=== PATIENT | female | born 1990 | race Caucasian/White ===

== ENCOUNTER → 2018-01-17 10:04 | Outpatient (CLI) | payer BC, SELFPAY ==
--- NOTE | 2018-01-17 10:12 | VDLE_ITS ---
Reason For Study: LEG SWELLING RIGHT LEFT GSV is normal. GSV is normal. CFV is compressible, spontaneous, phasic, CFV is compressible, spontaneous, phasic, competent and demonstrates normal competent, and demonstrates normal augmentation. augmentation. FV is compressible, spontaneous, phasic, FV is compressible, spontaneous, phasic, competent and demonstrates normal competent and demonstrates normal augmentation. augmentation. POP V is compressible, spontaneous, phasic, POP V is compressible, spontaneous, phasic, competent and demonstrates normal competent and demonstrates normal augmentation. augmentation. T/P Trunk is compressible. T/P Trunk is compressible. PTV is compressible. PTV is compressible. RT PerV is compressible. LT PerV is compressible. SFJ is competent SFJ is competent GSV and SSV are diminutive and unable to be GSV and SSV are diminutive and unable to be assessed. assessed. Procedure Exam performed in department. A preliminary report was called and/or faxed to Dr. Leon. Interpretation Summary Deep veins of the lower extremities are bilaterally patent and compressible segmentally. There is no evidence of deep vein thrombosis on either side. Valvular competence appears intact within the proximal deep venous systems bilaterally. Sapheno-femoral junctions are bilaterally competent . The great saphenous vein and small saphenous vein are diminutive bilaterally, and could not be fully assessed. Ordering Physician: Kevin Leon Performed By: Elizabeth Suarez RVT
== END ==
DX: R60.0 Localized edema (principal)
CPT/HCPCS: 93970

== ENCOUNTER 2018-03-25 08:26 | Outpatient (RCR) | payer BC, SELFPAY ==
[2018-03-25 08:58] VITALS: BP 120/76; PULSE 60; RESP 18; TEMP 35.6; BMI 56.9
--- NOTE | 2018-03-25 10:03 | PCM.WC.HP ---
(1) Bilateral lower extremity edema Status: Acute Current Visit: Yes Code(s): R60.0 - Localized edema (2) Pain in both knees Status: Acute Current Visit: Yes Code(s): M25.561 - Pain in right knee; M25.562 - Pain in left knee (3) Peripheral vascular occlusive disease Status: Acute Current Visit: Yes Code(s): I73.9 - Peripheral vascular disease, unspecified History of Present Illness Date of Service: 03/25/18 Chief Complaint: Bilateral lower leg swelling History of Wound: 27-year-old white female, seen by her primary physician for lower extremity edema. Patient has no comorbidities noted. Patient noticed since November increasing edema on the lower legs with pain in her knees and lower extremities especially in the calf. Patient had a bilateral ultrasound for DVTs and they were negative for DVTs but they did find on her GSV's bilaterally are diminutive and unable to assess. Patient is a non-smoker has 2 small children had normal pregnancies had some swelling with the first but not with the second. Is on her feet 10-12 hours a day working. Patient has been wearing compression stockings 20-30 mmHg and actually had pictures to demonstrate the severe swelling that she has had with 2+ pitting edema. Will be referred to Dr. Diana for ablation and treatment. Patient's questions were answered and patient was cooperative there is no wounds on her legs there is good coloring skin was warm to touch cap refill is less than 2 seconds. Past Medical History Past Medical History: Anxiety and lower leg edema Surgical History: appendectomy, hysterectomy Allergies/Adverse Reactions: Allergies Penicillins Allergy (Verified 03/25/18 09:11) Hives sulfamethoxazole [From Bactrim] Allergy (Verified 03/25/18 09:11) Hives trimethoprim [From Bactrim] Allergy (Verified 03/25/18 09:11) Hives Home Medications: Ambulatory Orders Medication Instructions Recorded Clonazepam [Clonazepam Tab.Rapdis] 0.25 mg PO QHS 08/21/16 Paroxetine HCl [Paxil] 20 mg PO QHS 03/30/17 Estradiol 2 mg PO DAILY #100 tablet 04/05/17 Mirtazapine [Remeron] 15 mg PO 03/25/18 Lives: Spouse/ Significant Other, With Family Smoking Status: Never smoker Alcohol: Rare Drugs: None Review of Systems Constitutional: Denies: Chills, Fever Eyes: Denies: Blurred vision, Drainage, Pain HEENT: Denies: Difficulty Hearing, Difficulty Swallowing, Sore Throat, Visual Changes Cardiovascular: Reports: Edema - Lower extremities bilateral. Denies: Chest Pain, Palpitations, Syncope Respiratory: Denies: Cough, Shortness of Breath Gastrointestinal: Denies: Abdominal Pain, Nausea, Vomiting Genitourinary: Denies: Dysuria, Frequency Musculoskeletal: Denies: Joint Pain, Muscle pain Skin: Denies: Jaundice, Rash Neurological: Denies: Balance problems, Change in Speech, Difficulty swallowing, Focal weakness Psychiatric: Denies: Anxiety, Depression Endocrine: Denies: Change in Body Habitus Hematologic/ Lymphatic: Denies: Adenopathy - Physical Exam Vital Signs Temp Pulse Resp BP 96.1 F L 60 18 120/76 03/25/18 08:58 03/25/18 08:58 03/25/18 08:58 03/25/18 08:58 General: Oriented x3, Cooperative, Well developed HEENT: Atraumatic, PERRLA Oral: Moist Mucosa Neck: Supple, No JVD Lungs: Clear to auscultation, Normal air movement Cardiovascular: Regular rate, Regular Rhythm Abdomen: Bowel Sounds Present, Soft, Non Tender, No Hepato-splenomegaly Extremities: No clubbing, Edema, Peripheral Pulses Normal Skin: No rashes Wound Measurements and Assessment WC - Nurse 1 - General Ulcer Measurement Start: 03/25/18 08:28 Freq: Status: Active Protocol: Activity Type Activity Date Activity User E-Sign Co-Sign Detail Recorded Client Recorded Date Recorded By Document 03/25/18 08:58 [id number] 03/25/18 09:08 DL 03/25/18 08:58 Wound Center Nurse 1 [Ulcer Assessment] Edema -Photo Taken Yes -Texture (Hope-wound Skin Appearance) No Abnormality -Moisture (Hope-wound Skin Appearance No Abnormality ) -Color (Hope-wound Skin Appearance) No Abnormality -Temperature (Hope-wound Skin No Abnormality Appearance) (Pt Warm) [Edema Assessment] -Right Calf (cm) 38.5 -Right Ankle (cm) 23.2 -Left Calf (cm) 37.8 -Left Ankle (cm) 23 WC - Nurse 2 - General Ulcer CM Notes Start: 03/25/18 08:28 Freq: Status: Active Protocol: Activity Type Activity Date Activity User E-Sign Co-Sign Detail Recorded Client Recorded Date Recorded By Document 03/25/18 09:33 [id number] 03/25/18 09:34 03/25/18 09:33 Pain Scale: 0-10 Numeric [Pain] -Is Patient Pain Free? Yes Musculoskeletal: No Tenderness to Palpation of Joints or Extremities Lymphatic: No Cervical, Supraclavicular, or Inguinal Adenopathy Neurological: Cranial nerves II-XII grossly intact, Neuro grossly intact Psych/Mental Status: Normal Affect, Appropriate, Alert and oriented to time, place, person, mood and affect Debridement Note Post-Debridement Measurements/Treatment WC - Nurse 2 - General Ulcer CM Notes Start: 03/25/18 08:28 Freq: Status: Active Protocol: Activity Type Activity Date Activity User E-Sign Co-Sign Detail Recorded Client Recorded Date Recorded By Document 03/25/18 09:33 [id number] 03/25/18 09:34 03/25/18 09:33 Pain Scale: 0-10 Numeric Is Patient Pain Free? Yes No debridement was completed today Assessment/Plan Active Problems Bilateral lower extremity edema (Acute) Pain in both knees (Acute) Peripheral vascular occlusive disease (Acute) Assessment: Bilateral lower leg edema. Peripheral vascular occlusive disease. bilateral lower leg pain Plan: Continue wearing compression stockings 20-30 mmHg with Jake wraps over top. Referred to Dr. Diana's office and will defer care to him. As needed
--- NOTE | 2018-03-25 10:23 | HP.PCM_ITS ---
(1) Bilateral lower extremity edema Status: Acute Current Visit: Yes Code(s): R60.0 - Localized edema (2) Pain in both knees Status: Acute Current Visit: Yes Code(s): M25.561 - Pain in right knee; M25.562 - Pain in left knee (3) Peripheral vascular occlusive disease Status: Acute Current Visit: Yes Code(s): I73.9 - Peripheral vascular disease, unspecified History of Present Illness Date of Service: 03/25/18 Chief Complaint: Bilateral lower leg swelling History of Wound: 27-year-old white female, seen by her primary physician for lower extremity edema. Patient has no comorbidities noted. Patient noticed since November increasing edema on the lower legs with pain in her knees and lower extremities especially in the calf. Patient had a bilateral ultrasound for DVTs and they were negative for DVTs but they did find on her GSV's bilaterally are diminutive and unable to assess. Patient is a non-smoker has 2 small children had normal pregnancies had some swelling with the first but not with the second. Is on her feet 10-12 hours a day working. Patient has been wearing compression stockings 20-30 mmHg and actually had pictures to demonstrate the severe swelling that she has had with 2+ pitting edema. Will be referred to Dr. Diana for ablation and treatment. Patient's questions were answered and patient was cooperative there is no wounds on her legs there is good coloring skin was warm to touch cap refill is less than 2 seconds. Past Medical History Past Medical History: Anxiety and lower leg edema Surgical History: appendectomy, hysterectomy Allergies/Adverse Reactions: Allergies Penicillins Allergy (Verified 03/25/18 09:11) Hives sulfamethoxazole [From Bactrim] Allergy (Verified 03/25/18 09:11) Hives trimethoprim [From Bactrim] Allergy (Verified 03/25/18 09:11) Hives Home Medications: Ambulatory Orders Medication Instructions Recorded Clonazepam [Clonazepam Tab.Rapdis] 0.25 mg PO QHS 08/21/16 Paroxetine HCl [Paxil] 20 mg PO QHS 03/30/17 Estradiol 2 mg PO DAILY #100 tablet 04/05/17 Mirtazapine [Remeron] 15 mg PO 03/25/18 Lives: Spouse/ Significant Other, With Family Smoking Status: Never smoker Alcohol: Rare Drugs: None Review of Systems Constitutional: Denies: Chills, Fever Eyes: Denies: Blurred vision, Drainage, Pain HEENT: Denies: Difficulty Hearing, Difficulty Swallowing, Sore Throat, Visual Changes Cardiovascular: Reports: Edema - Lower extremities bilateral. Denies: Chest Pain, Palpitations, Syncope Respiratory: Denies: Cough, Shortness of Breath Gastrointestinal: Denies: Abdominal Pain, Nausea, Vomiting Genitourinary: Denies: Dysuria, Frequency Musculoskeletal: Denies: Joint Pain, Muscle pain Skin: Denies: Jaundice, Rash Neurological: Denies: Balance problems, Change in Speech, Difficulty swallowing , Focal weakness Psychiatric: Denies: Anxiety, Depression Endocrine: Denies: Change in Body Habitus Hematologic/ Lymphatic: Denies: Adenopathy - Physical Exam Vital Signs Temp Pulse Resp BP 96.1 F L 60 18 120/76 03/25/18 08:58 03/25/18 08:58 03/25/18 08:58 03/25/18 08:58 General: Oriented x3, Cooperative, Well developed HEENT: Atraumatic, PERRLA Oral: Moist Mucosa Neck: Supple, No JVD Lungs: Clear to auscultation, Normal air movement Cardiovascular: Regular rate, Regular Rhythm Abdomen: Bowel Sounds Present, Soft, Non Tender, No Hepato-splenomegaly Extremities: No clubbing, Edema, Peripheral Pulses Normal Skin: No rashes Wound Measurements and Assessment WC - Nurse 1 - General Ulcer Measurement Start: 03/25/18 08:28 Freq: Status: Active Protocol: Activity Type Activity Date Activity User E-Sign Co-Sign Detail Recorded Client Recorded Date Recorded By Document 03/25/18 08:58 [id number] 03/25/18 09:08 DL 03/25/18 08:58 Wound Center Nurse 1 [Ulcer Assessment] Edema -Photo Taken Yes -Texture (Hope-wound Skin Appearance) No Abnormality -Moisture (Hope-wound Skin Appearance No Abnormality ) -Color (Hope-wound Skin Appearance) No Abnormality -Temperature (Hope-wound Skin No Abnormality Appearance) (Pt Warm) [Edema Assessment] -Right Calf (cm) 38.5 -Right Ankle (cm) 23.2 -Left Calf (cm) 37.8 -Left Ankle (cm) 23 WC - Nurse 2 - General Ulcer CM Notes Start: 03/25/18 08:28 Freq: Status: Active Protocol: Activity Type Activity Date Activity User E-Sign Co-Sign Detail Recorded Client Recorded Date Recorded By Document 03/25/18 09:33 [id number] [id number] 03/25/18 09:34 03/25/18 09:33 Pain Scale: 0-10 Numeric [Pain] -Is Patient Pain Free? Yes Musculoskeletal: No Tenderness to Palpation of Joints or Extremities Lymphatic: No Cervical, Supraclavicular, or Inguinal Adenopathy Neurological: Cranial nerves II-XII grossly intact, Neuro grossly intact Psych/Mental Status: Normal Affect, Appropriate, Alert and oriented to time, place, person, mood and affect Debridement Note Post-Debridement Measurements/Treatment WC - Nurse 2 - General Ulcer CM Notes Start: 03/25/18 08:28 Freq: Status: Active Protocol: Activity Type Activity Date Activity User E-Sign Co-Sign Detail Recorded Client Recorded Date Recorded By Document 03/25/18 09:33 [id number] [id number] 03/25/18 09:34 03/25/18 09:33 Pain Scale: 0-10 Numeric Is Patient Pain Free? Yes No debridement was completed today Assessment/Plan Active Problems Bilateral lower extremity edema (Acute) Pain in both knees (Acute) Peripheral vascular occlusive disease (Acute) Assessment: Bilateral lower leg edema. Peripheral vascular occlusive disease. bilateral lower leg pain Plan: Continue wearing compression stockings 20-30 mmHg with Jake wraps over top. Referred to Dr. Diana's office and will defer care to him. As needed
== END 2018-04-23 23:59 ==
LOC: WC 08:26
PROVIDERS: Visit Provider Nurse Practitioner
DX: I73.9 Peripheral vascular disease, unspecified (principal); M25.561 Pain in right knee; M25.562 Pain in left knee; R60.0 Localized edema; M79.89 Other specified soft tissue disorders; F41.9 Anxiety disorder, unspecified; Z79.899 Other long term (current) drug therapy
CPT/HCPCS: 99213; G0463

== ENCOUNTER → 2018-08-15 16:08 | Outpatient (CLI) | payer BC, SELFPAY | PROVIDERS: Visit Provider Obstetrics & Gynecology | DX: N39.0 Urinary tract infection, site not specified (principal) | CPT/HCPCS: 87086 ==

== ENCOUNTER → 2020-01-22 12:10 | Outpatient (CLI) | payer BC, SELFPAY ==
[2019-11-13 11:52] VITALS: BMI 27.1
--- NOTE | 2020-01-22 12:12 | ECHOD_ITS ---
Reason For Study: Chest Pain Procedure This was a 2D Doppler, Color Flow transthoracic echocardiogram. The exam was of adequate technical quality. Exam performed in department. Left Ventricle Normal LV size. Left ventricular systolic function is normal. The estimated ejection fraction is 65 %. No evidence for diastolic dysfunction. No regional wall motion abnormalities noted. Right Ventricle Normal RV size. Normal systolic function. Atria Normal left atrium. Normal right atrium. No doppler evidence for ASD. Mitral Valve There is no mitral annular calcification. Normal mitral valve. Trivial mitral valve insufficiency. Tricuspid Valve Normal tricuspid valve. Trivial tricuspid valve insufficiency. Right ventricular systolic pressure estimated to be 28 mmHg. Aortic Valve Trisinus/trileaflet aortic valve. Normal aortic valve. Pulmonic Valve The pulmonic valve is not well visualized. Trivial pulmonic valve insufficiency. Great Vessels Normal sized aortic root. Pericardium/Pleural No pericardial effusion. Medication Performed a rapid injection of agitated mix of 9 cc saline and 1cc air to assess for atrial septal defect. MMode/2D Measurements & Calculations LVIDd: 4.4 cm IVSd: 0.93 cm Ao root diam: 2.5 cm LVIDs: 2.9 cm LVPWd: 0.84 cm RVDd: 3.0 cm FS: 34.5 % LAV(MOD-bp): 33.8 ml LVAd ap4: 26.0 cm2 SV(MOD-sp4): 46.2 ml LAV(MOD-bp) Indexed: 18.0 ml/m2 EDV(MOD-sp4): 69.8 ml LAV(MOD-sp2): 24.0 ml EDV(sp4-el): 70.1 ml LAV(MOD-sp4): 40.9 ml LVAs ap4: 13.5 cm2 ESV(MOD-sp4): 23.6 ml ESV(sp4-el): 23.0 ml EF(MOD-sp4): 66.2 % EF(sp4-el): 67.2 % SV(sp4-el): 47.1 ml LA A4 area: 16.1 cm2 LA dimension(2D): 2.9 cm RA A4 area: 10.2 cm2 Doppler Measurements & Calculations MV E max vinicius: 105.7 cm/sec Lat Peak E' Vinicius: 13.7 cm/sec Med Peak E' Vinicius: 9.7 cm/sec MV A max vinicius: 52.8 cm/sec E/E' lat: 7.7 E/E' med: 10.9 MV E/A: 2.0 Ao V2 max: 130.7 cm/sec LV V1 max: 96.6 cm/sec PA V2 max: 85.7 cm/sec Ao max P.8 mmHg LV V1 max P.7 mmHg Ao V2 mean: 91.2 cm/sec Ao mean P.7 mmHg Ao V2 VTI: 32.9 cm PI end-d vinicius: 102.1 cm/sec TR max vinicius: 247.9 cm/sec TR max P.6 mmHg Interpretation Summary Left ventricular systolic function is normal. The estimated ejection fraction is 65 %. Trivial mitral valve insufficiency. Trivial tricuspid valve insufficiency. Trivial pulmonic valve insufficiency. Right ventricular systolic pressure estimated to be 28 mmHg. No evidence for diastolic dysfunction. Ordering Physician: Hugh Valle Referring Physician: Kevin Leon Performed By: Jennifer Valle, MARTHA, RVT
== END ==
PROVIDERS: PCP Family Medicine; Referring Provider Nurse Practitioner Family; Visit Provider Nurse Practitioner Family
DX: R07.9 Chest pain, unspecified (principal); I47.1 Supraventricular tachycardia
CPT/HCPCS: 93306; A4216

== ENCOUNTER → 2020-06-20 16:23 | Outpatient (CLI) | payer BC, SELFPAY ==
[2019-11-13 11:52] VITALS: BMI 27.1
[2020-06-24 20:07] LABS: Chlamydia By Nucleic Acid AMP Negative (Negative)
[2020-06-25 04:42] LABS: Gonococcus By Nucleic Acid AMP Negative (Negative)
== END ==
PROVIDERS: PCP Family Medicine; Visit Provider Obstetrics & Gynecology
DX: Z11.3 Encounter for screening for infections with a predominantly sexual mode of transmission (principal)
CPT/HCPCS: 87086; 87088; 87491; 87591

== ENCOUNTER 2021-08-01 12:23 | Emergency (ER) | payer BC, SELFPAY ==
[2021-08-01 12:24] VITALS: BP 151/103; PULSE 88; RESP 18; TEMP 36.4; O2SAT 95; BMI 31.0
[2021-08-01 12:25] VITALS: BP 151/103; PULSE 88; RESP 18; TEMP 36.4; O2SAT 95
--- NOTE | 2021-08-01 12:59 | EDS_ITS ---
HPI History of Present Illness Chief Complaint: General Illness Informant: patient Narrative Narrative: Patient presents with about 6 days of symptoms. She has had some myalgias and subjective fevers. She has not taken her temperature. She has never had any nasal congestion sore throat cough or pulmonary symptoms. She has had some nausea. She has vomited twice. Some slightly soft bowel movements at time but no blood. When specifically asked she has had some cloudy urine but no dysuria or urgency. No flank or back pain. She feared she likely had a viral infection but it is just not getting a lot better. She was checked for Covid and found to be negative both yesterday and on Wednesday. Nothing specifically makes her symptoms better or worse. PFSH PFSH Medical History no medical history Home Medications estradiol 2 mg tablet 1 mg PO DAILY tab 11/13/19 [History Last Taken Unknown] paroxetine HCl 20 mg tablet 60 mg PO QHS tab 11/13/19 [History Last Taken Unknown] trazodone 50 mg tablet 50 mg PO BID 11/13/19 [History Last Taken Unknown] valacyclovir 500 mg tablet 500 mg PO DAILY 11/13/19 [History Last Taken Unknown] ondansetron 4 mg PO Q8H PRN #10 tab 08/01/21 [Rx Last Taken Unknown] promethazine 25 mg PO TID PRN #10 tab 08/01/21 [Rx Last Taken Unknown] Allergy/AdvReac Type Severity Reaction Status Date / Time Penicillins Allergy Hives Verified 08/01/21 12:26 sulfamethoxazole Allergy Hives Verified 08/01/21 12:26 [From Bactrim] trimethoprim [From Bactrim] Allergy Hives Verified 08/01/21 12:26 Family History Mother Hypertension Hyperlipemia Father Hypertension Hyperlipemia Heart disease Sister Hypertension Social History Smoking Status: Never smoker ROS ROS ED Constitutional Constitutional ED: Reports chills, fever(s) and subjective; Denies weight loss Eyes Eyes: Denies blurry vision or change in vision ENT ENT ED: Denies ear pain, rhinorrhea or sore throat Cardiovascular Cardiovascular: Denies chest pain, orthopnea, palpitations or paroxysmal nocturnal dyspnea Respiratory/Chest Respiratory/Chest: Denies cough, dyspnea, dyspnea on exertion, orthopnea, paroxysmal nocturnal dyspnea or sputum Gastrointestinal Gastrointestinal: Reports diarrhea, nausea and vomiting; Denies abdominal pain Genitourinary Genitourinary ED: Reports other Details: Mild cloudy urine as in history of present illness. ; Denies dysuria, hematuria or urinary frequency Musculoskeletal Musculoskeletal: Reports myalgias; Denies back pain or neck pain Integumentary Denies rash Neurologic Neurologic: Denies headache(s) Endocrine Endocrinology: Denies polyuria Allergic/Immunologic Allergic/Immunologic ED: Denies mouth swelling or urticaria EXAM Physical Exam Const Vital Signs: 08/01/21 12:24 08/01/21 12:25 08/01/21 12:31 Temperature 97.6 F L 97.6 F L Temperature Source Temporal Temporal Pulse Rate 88 88 Respiratory Rate 18 18 Respiratory Effort Normal Non-Labored Blood Pressure 151/103 H 151/103 H Blood Pressure Mean 119 119 Pulse Ox 95 95 Oxygen Delivery Method Room Air Room Air 08/01/21 14:50 Temperature Temperature Source Pulse Rate 82 Respiratory Rate 17 Respiratory Effort Blood Pressure 104/73 Blood Pressure Mean 83 Pulse Ox 100 Oxygen Delivery Method Room Air Positive well nourished and well developed General Appearance ED: well developed and NAD HEENT Reports dry mucous membranes Negative for trauma or tenderness Mouth ED: Yes dry mucous membranes Mouth: dry mucous membranes Eyes General Eye ED: Negative for pale conjunctiva or scleral icterus Neck no JVD Chest Wall inspection of chest normal Resp normal respiratory effort and clear to auscultation bilaterally Effort and Inspection: Negative for pain with movement Auscultation: Negative for rales, rhonchi or wheezes Cardio regular rate and regular rhythm GI normal to inspection, nondistended, normoactive bowel sounds, non-tender and non-distended Back/Spine no CVA tenderness Extremity normal to inspection General Extremety ED: Negative for edema or tenderness General Extremity: Negative for edema Neuro Sensorium / Orientation: alert Psych mental status grossly normal Skin no rashes or lesions noted and no wounds MDM MDM MDM Narrative Medical decision making narrative: Blood work including CBC electrolytes are normal. Urinalysis is pending. I rechecked the patient. She states she did call once and had a little bit of pain in her chest but is gone now. An EKG was done per protocol. She is not having pain now. She states she still does have some nausea. We will write her for some Phenergan while here. We are awaiting the urinalysis. Patient is doing a little better with Phenergan. Her urinalysis shows no acute process. She still not coughing. Her saturations are 100%. She has no pulmonary symptoms. Her abdomen is completely benign on repeat exam. Lab Data Attestation: I reviewed the patient's lab results. Labs: Laboratory Results - last 24 hr 08/01/21 08/01/21 08/01/21 13:15 13:15 15:04 WBC 6.5 RBC 5.02 Hgb 14.7 Hct 43.6 MCV 86.9 MCH 29.3 MCHC 33.7 RDW Std Deviation 39.1 RDW Coeff of [place] 12.4 Plt Count 309 MPV 9.6 Immature Gran % (Auto) 0.200 Neut % (Auto) 55.3 Lymph % (Auto) 33.6 [place] % (Auto) 7.3 Eos % (Auto) 2.8 Baso % (Auto) 0.8 Absolute Neuts (auto) 3.6 Absolute Lymphs (auto) 2.20 Nucleated RBC % 0 Sodium 140 Potassium 3.9 Chloride 106 Carbon Dioxide 29.0 Anion Gap 5 BUN 11 Creatinine 0.83 Estim Creat Clear Calc 95.50 Est GFR (MDRD) Af Amer 102 Est GFR (MDRD) Non-Af 85 BUN/Creatinine Ratio 13.2 Glucose 98 Calcium 9.6 Urine Color Yellow Urine Clarity Clear Urine pH 7.0 Ur Specific [place] 1.010 Urine Protein Negative Urine Glucose (UA) Normal Urine Ketones Negative Urine Occult Blood Negative Urine Nitrite Negative Urine Bilirubin Negative Urine Urobilinogen Normal Ur Leukocyte Esterase Negative Urine RBC 0 SEEN Urine WBC 0 SEEN Ur Squamous Epith Cells 0-5 SEEN Urine Bacteria 0 SEEN Urine Mucus 0 SEEN Discharge Plan Triage Chief Complaint: General Illness ED Provider: Milind Diaz Dx/Rx/DC Orders Clinical Impression: Acute viral syndrome, Nausea vomiting and diarrhea Instructions: ED Vomiting and Diarrhea ... Prescriptions: New ondansetron 4 mg tablet,disintegrating 4 mg PO Q8H PRN (Reason: nausea and vomiting) Qty: 10 RF: 0 promethazine 25 mg tablet 25 mg PO TID PRN (Reason: nausea and vomiting) Qty: 10 RF: 0 No Action trazodone 50 mg tablet 50 mg PO BID RF: 0 valacyclovir [Valtrex] 500 mg tablet 500 mg PO DAILY RF: 0 estradiol 2 mg tablet 1 mg PO DAILY RF: 0 paroxetine HCl 20 mg tablet 60 mg PO QHS RF: 0 Primary Care Provider: Kevin Leon Referrals: Kevin Leon MD [Primary Care Provider] - 1-2 Days if not improving Disposition Disposition: Home, Self Care
[2021-08-01] MEDS: Ondansetron 4 MG/2 ML Vial IV (13:10)
[2021-08-01] MEDS: 0.9% Normal Saline 1,000 ML 1000 ML IV (13:10)
[2021-08-01 13:25] LABS: Absolute Neutrophil Count 3.6 X10^3/uL (2.0-7.7); Basophil# 0.05 X10^3/uL; Basophil% 0.8 % (0-1); Eosinophil# 0.18 X10^3/uL; Eosinophils% 2.8 % (0-5); Hematocrit 43.6 % (37-47); Hemoglobin 14.7 g/dL (12.0-15.0); Lymphocyte % 33.6 % (19-41); Mean Corp Hgb Conc 33.7 g/dL (32-36); Mean Corpuscular Hgb 29.3 pg (27.0-32.0); Mean Corpuscular Volume 86.9 fL (81-99); Mean Platelet Vol. 9.6 fl (6.2-12.0); Monocyte# 0.48 X10^3/uL; Monocyte% 7.3 % (0-10); NRBC Flagged by Analyzer 0 % (0-5); Neutrophil # 3.62 X10^3/uL (2.7-7.7); Neutrophil % 55.3 % (47-70); Platelet Count 309 K/mm3 (150-450); RBC Distribution Width CV 12.4 % (11.6-14.6); RBC Distribution Width SD 39.1 fl (35.1-43.9); Red Blood Count 5.02 M/mm3 (4.2-5.4); White Blood Count 6.5 K/mm3 (4.4-11.0)
[2021-08-01 13:33] LABS: Anion Gap 5 (5-15); BUN 11 mg/dL (7-18); BUN/Creat Ratio 13.2 RATIO (10-20); Calcium,Total 9.6 mg/dL (8.5-10.1); Chloride 106 mmol/L (98-107); Creatinine, Serum 0.83 mg/dL (0.55-1.02); EST Glomerular Filtration Rate 85 mL/min (>60); Est Glom Filt Rate - Afr Amer 102 mL/min (>60); Glucose 98 mg/dL (74-106); Potassium 3.9 mmol/L (3.5-5.1); Sodium Level 140 mmol/L (136-145)
--- NOTE | 2021-08-01 13:54 | EKG12_ITS ---
Test Reason : NEW ONSET CP Blood Pressure : / mmHG Vent. Rate : 083 BPM Atrial Rate : 083 BPM P-R Int : 174 ms QRS Dur : 088 ms QT Int : 386 ms P-R-T Axes : 062 012 -09 degrees QTc Int : 453 ms Normal sinus rhythm Low voltage QRS Septal infarct , age undetermined ST & T wave abnormality, consider anterior ischemia Abnormal ECG Confirmed by SIDNEY LEACH, JINA ([id number]), sound editor TRICIA MINA ([id number]) on 08/04/2021 12:39:18 PM Referred By: PL Confirmed By:JOIE LITTLE MD
[2021-08-01] MEDS: 0.9% Normal Saline 1,000 ML 999 ML IV (14:49)
[2021-08-01 14:50] VITALS: BP 104/73; PULSE 82; RESP 17; O2SAT 100
[2021-08-01 15:13] LABS: Bacteria 0 SEEN /hpf (None Seen); Mucous, Urine 0 SEEN /hpf (<or=2+); Red Blood Cells-Urine 0 SEEN /hpf (0-5); White Blood Cells 0 SEEN /hpf (0-5)
[2021-08-01 15:22] LABS: Color, Urine Yellow (Yellow); Glucose, Dipstick Normal (Normal); Ketone-Dipstick Negative (Negative); Leukocyte Esterase-Dipstick Negative /ul (Negative); Nitrite-Dipstick Negative (Negative); Occult Blood-Urine Negative /ul (Negative); Protein-Dipstick Negative (Negative); Urine Bilirubin Dipstick Negative (Negative); Urine Clarity Clear (Clear); Urine Urobilinogen Normal (Normal)
[2021-08-01 15:27] LABS: Squamous Epithelial Cells - UA 0-5 SEEN /hpf (5-10)
[2021-08-01] MEDS: proMETHazine 25 MG/ML Syringe 12.5 MG IM (15:36)
[2021-08-01 15:53] VITALS: BP 130/84; PULSE 92; RESP 15; O2SAT 99
== END 2021-08-01 15:54 | disposition home or self-care (01) ==
PROVIDERS: Emergency Provider Emergency Medicine; PCP Family Medicine
DX: B34.9 Viral infection, unspecified (principal); R11.2 Nausea with vomiting, unspecified; R19.7 Diarrhea, unspecified
CPT/HCPCS: 80048; 81001; 85025; 93005; 96361; 96372; 96374; 99284; J7030; J2405

== ENCOUNTER → 2021-08-15 14:32 | Outpatient (CLI) | payer BC, SELFPAY ==
[2021-08-19 08:09] LABS: Endomysial Antibody IgA Negative (Negative)
[2021-08-19 09:40] LABS: Immunoglobulin A 166 mg/dL (87-352); t-Transglutaminase IgA <2 U/mL (0-3)
== END ==
PROVIDERS: PCP Family Medicine; Referring Provider Internal Medicine Gastroenterology; Visit Provider Internal Medicine Gastroenterology
DX: R10.9 Unspecified abdominal pain (principal); R11.0 Nausea
CPT/HCPCS: 36415; 82784; 83516; 86140; 86255

== ENCOUNTER → 2022-03-25 | Outpatient (CLI) | payer BC, SELFPAY | END | disposition home or self-care (01) | LOC: LABSPEC 10:04 | PROVIDERS: PCP Family Medicine; Visit Provider Obstetrics & Gynecology | DX: N39.0 Urinary tract infection, site not specified (principal) | CPT/HCPCS: 87086 ==

== ENCOUNTER → 2022-09-07 | Outpatient (CLI) | payer BC, SELFPAY ==
[2022-09-07 15:01] LABS: D-Dimer Quantitative (DVT/PE) 0.37 FEU/ug/m (0.27-0.49)
== END | disposition home or self-care (01) ==
PROVIDERS: PCP Family Medicine; Visit Provider Family Medicine
DX: R06.00 Dyspnea, unspecified (principal)
CPT/HCPCS: 36415; 85379

== ENCOUNTER → 2023-01-06 | Outpatient (CLI) | payer BC, SELFPAY ==
[2023-01-14 13:04] LABS: HPV APTIMA, High Risk Negative (Negative)
== END | disposition home or self-care (01) ==
PROVIDERS: PCP Family Medicine; Visit Provider Nurse Practitioner Women's Health
DX: Z12.72 Encounter for screening for malignant neoplasm of vagina (principal)
CPT/HCPCS: 87624; 88175; G0145

== ENCOUNTER → 2023-11-04 | Outpatient (CLI) | payer BC, SELFPAY ==
[2023-11-04 15:31] LABS: Absolute Lymphocyte Count 1.97 X10^3/uL (0.83-4.51); Absolute Neutrophil Count 2.9 X10^3/uL (2.0-7.7); Basophil# 0.06 X10^3/uL; Basophil% 1.1 % (0-1); Eosinophil# 0.07 X10^3/uL; Eosinophils% 1.3 % (0-5); Hematocrit 41.7 % (37-47); Hemoglobin 14.1 g/dL (12.0-15.0); Lymphocyte # 1.97 X10^3/ul (0.83-4.51); Mean Corp Hgb Conc 33.8 g/dL (32-36); Mean Corpuscular Hgb 28.4 pg (27.0-32.0); Mean Corpuscular Volume 84.1 fL (81-99); Monocyte# 0.34 X10^3/uL; Monocyte% 6.4 % (0-10); NRBC Flagged by Analyzer 0 % (0-5); Neutrophil # 2.89 X10^3/uL (2.7-7.7); Neutrophil % 54.2 % (47-70); Platelet Count 301 K/mm3 (150-450); RBC Distribution Width SD 36.6 fl (35.1-43.9); Red Blood Count 4.96 M/mm3 (4.2-5.4); White Blood Count 5.3 K/mm3 (4.4-11.0)
[2023-11-04 16:46] LABS: AST(SGOT) 14 U/L (15-37); Alanine Aminotransfer ALT/SGPT 16 U/L (13-56); Albumin, Serum 3.8 g/dL (3.2-5.0); Alkaline Phosphatase 67 U/L (45-117); Anion Gap 7 (5-15); BUN 12 mg/dL (7-18); BUN/Creat Ratio 14.5 RATIO (10-20); Calcium,Total 8.8 mg/dL (8.5-10.1); Chloride 106 mmol/L (98-107); Creatinine, Serum 0.83 mg/dL (0.55-1.02); EST Glomerular Filtration Rate 84 mL/min (>60); Est Glom Filt Rate - Afr Amer 102 mL/min (>60); Globulin 3.8 g/dL (2.2-4.2); Glucose 76 mg/dL (74-106); Potassium 3.8 mmol/L (3.5-5.1); Protein, Total 7.6 g/dL (6.4-8.2); Sodium Level 140 mmol/L (136-145); T4 Free Direct 1.26 ng/dL (0.76-1.46); Thyroid Stim Hormone (TSH) 1.45 uIU/mL (0.358-3.74)
[2023-11-04 17:19] LABS: Hepatitis B Surface Antibody Non-Reactive; Hepatitis B Surface Antigen Non-Reactive (Nonreactive); Hepatitis C Antibody Non-Reactive (Nonreactive)
[2023-11-08 15:08] LABS: Hepatitis B Core Ab Total Negative (Negative); PROEL- A/G Ratio 1.1 (0.7-1.7); PROEL- Albumin 3.7 g/dL (2.9-4.4); PROEL- Alpha-1 Globulin 0.3 g/dL (0.0-0.4); PROEL- Alpha-2 Globulin 0.9 g/dL (0.4-1.0); PROEL- Beta Globulin 1.2 g/dL (0.7-1.3); PROEL- Globulin, Total 3.3 g/dL (2.2-3.9); PROEL-M-Spike Not Observed g/dL (Not Observed); Thyroid Peroxidase AB 10 IU/mL (0-34)
== END | disposition home or self-care (01) ==
LOC: MTLAB 13:51
PROVIDERS: PCP Family Medicine; Referring Provider Dermatology; Visit Provider Dermatology
DX: L20.89 Other atopic dermatitis (principal)
CPT/HCPCS: 36415; 80053; 84165; 84439; 84443; 85025; 86376; 86704; 86706; 86803; 87340

== ENCOUNTER → 2023-11-11 | Outpatient (CLI) | payer BC, SELFPAY ==
[2023-11-14 13:07] LABS: Clam <0.10 kU/L (Class 0); Codfish <0.10 kU/L (Class 0); Corn <0.10 kU/L (Class 0); Egg, White <0.10 kU/L (Class 0); Gluten <0.10 kU/L (Class 0); Milk (Cow) <0.10 kU/L (Class 0); Peanut <0.10 kU/L (Class 0); SCALLOP <0.10 kU/L (Class 0); SESAME SEED <0.10 kU/L (Class 0); Shrimp <0.10 kU/L (Class 0); Soybean <0.10 kU/L (Class 0); Walnut, (Food) <0.10 kU/L (Class 0); Wheat <0.10 kU/L (Class 0)
[2023-11-18 10:09] LABS: Beef <0.10 kU/L (Class 0); Chicken <0.10 kU/L (Class 0); Garlic <0.10 kU/L (Class 0); Pork <0.10 kU/L (Class 0)
== END | disposition home or self-care (01) ==
LOC: LAB 10:39
PROVIDERS: PCP Family Medicine; Referring Provider Otolaryngology; Visit Provider Otolaryngology
DX: T78.40XA Allergy, unspecified, initial encounter (principal)
CPT/HCPCS: 36415; 86003

== ENCOUNTER → 2024-07-21 | Outpatient (CLI) | payer BC, SELFPAY ==
[2024-07-21 13:19] LABS: Vitamin B12 262 pg/mL (211-911)
[2024-07-21 14:23] LABS: Ferritin 50 ng/mL (8-252); Free T3 2.9 pg/mL (2.18-3.98); T4 Free Direct 1.17 ng/dL (0.76-1.46)
[2024-07-27 04:07] LABS: Thyroid Peroxidase AB < 9 IU/mL (0-34); Zinc, Plasma or Serum 70 ug/dL (44-115)
== END | disposition home or self-care (01) ==
LOC: MTLAB 09:33
PROVIDERS: PCP Nurse Practitioner Family; Referring Provider Physician Assistant Medical; Visit Provider Physician Assistant Medical
DX: L65.9 Nonscarring hair loss, unspecified (principal)
CPT/HCPCS: 36415; 82607; 82728; 82746; 84439; 84443; 84481; 84630; 86376